=== PATIENT | male | born 1970 | race Caucasian/White ===

== ENCOUNTER 2021-04-28 10:23 | Emergency (ER) | payer SELFPAY ==
[2021-04-28] MEDS ORDERED: diphenhydrAMINE 50 MG/ML SDV IVPUSH ONE (11:01)
[2021-04-28] MEDS ORDERED: methylPREDNISolone Sod Succ 125 MG in Sodium Chloride 0.9% 250 ML IV ONE (11:01)
[2021-04-28] MEDS ORDERED: EPINEPHrine 1 MG/ML SDV IM ONE (11:03)
--- NOTE | 2021-04-28 11:19 | EDM.PDOC ---
ED [facility] GENERAL MEDICAL PROBLEM - General Chief Complaint: Allergic Reaction Stated Complaint: BEE STING/ALLERGIC REACTION Time Seen by Provider: 04/28/21 11:03 Source of Information: Reports: Patient History Limitations: Reports: No Limitations - History of Present Illness INITIAL COMMENTS - FREE TEXT/NARRATIVE: Patient is a 51-year-old male with no significant past medical history presenting with a chief complaint of allergy to bee sting. Patient states he was stung on his right palm less than 1 hour prior to arrival. No interventions performed prior to arrival. Patient reports itchiness to his hand, difficulty swallowing, tightness in his throat. Patient reports 1 prior severe reaction to bee sting. Patient concerned about anaphylaxis. Patient has no cardiac history or other concerns at this time. Right Hand Pain Score (Numeric/FACES): 3 - Related Data Allergies Allergy/AdvReac Type Severity Reaction Status Date / Time bee pollen Allergy Swollen Verified 04/28/21 10:57 Tongue Penicillins Allergy Hives Verified 04/28/21 10:57 Past Medical History HEENT History: Reports: Sinusitis Cardiovascular History: Reports: Other (See Below) Other Cardiovascular History: skipped beats at young age, subsided. Respiratory History: Reports: Pneumonia, Recurrent Gastrointestinal History: Reports: Cholelithiasis Musculoskeletal History: Reports: Fracture Neurological History: Reports: Concussion, Head Trauma, Other (See Below) Other Neuro History: skull fracture x2. - Infectious Disease History Infectious Disease History: Reports: Chicken Pox - Past Surgical History HEENT Surgical History: Reports: Other (See Below) Other HEENT Surgeries/Procedures: lip surgery for laceration, reconstruction surgery. Social & Family History - Tobacco Use Tobacco Use Status *Q: Current Some Day Tobacco User Years of Tobacco use: 20 Packs/Tins Daily: 0.1 - Caffeine Use Caffeine Use: Reports: Coffee, Soda - Recreational Drug Use Recreational Drug Use: Yes Recreational Drug Type: Reports: Marijuana/Hashish ED ROS ALLERGIC REACTION - Review of Systems Review Of Systems: See Below Free Text/Narrative/Comment: In addition to that documented in the HPI above, the additional ROS was obtained: Constitutional: Denies fevers or chills Eyes: Denies vision changes ENMT: Denies sore throat CV: Denies chest pain Resp: Mild SOB GI: Denies vomiting or diarrhea : Denies painful urination MSK: Denies recent trauma Skin: Denies new rashes Neuro: Denies new numbness or tingling or weakness Endocrine: Denies unexpected weight loss Heme: Denies bleeding disorders ED EXAM GENERAL NO PERIP PULSE - Physical Exam Exam: See Below Text/Narrative:: I have reviewed the triage vital signs Const: Well nourished, well developed, appears stated age Eyes: Pupils Equal and reactive to light bilaterally, no conjunctival injection HENT: Mild edema of the uvula. Voice is normal. No tongue swelling no lip swelling. No signs of trauma or swelling, Neck supple without meningismus CV: Regular Rate Rhythm, Warm, well-perfused extremities RESP: No wheezing noted. Unlabored respiratory effort GI: soft, non-tender, non-distended, no masses MSK: No gross deformities appreciated Skin: Warm, dry. No rashes Neuro: Alert, digital photo printer II-XII grossly intact. Sensation and motor function of extremities grossly intact. Psych: Appropriate mood and affect. Course - Vital Signs Last Recorded V/S: Last Vital Signs Temp 36.1 C 04/28/21 10:23 Pulse 96 04/28/21 10:23 Resp 24 H 04/28/21 10:23 BP 128/80 04/28/21 10:23 Pulse Ox 100 04/28/21 10:23 - Orders/Labs/Meds Meds: Medications Discontinued Medications Generic Name Dose Route Start Last Admin Trade Name Shawn PRFrancis Reason Stop Dose Admin Diphenhydramine HCl 25 mg 04/28/21 11:01 04/28/21 11:20 Diphenhydramine 50 Mg/Ml Sdv IVPUSH 04/28/21 11:02 25 mg ONETIME ONE Administration Epinephrine HCl 0.3 mg 04/28/21 11:03 04/28/21 11:19 Epinephrine 1 Mg/Ml Sdv IM 04/28/21 11:04 0.3 mg ONETIME ONE Administration Methylprednisolone Sodium 251 mls @ 251 mls/hr 04/28/21 11:01 04/28/21 11:25 Succinate 125 mg/ Sodium IV 04/28/21 11:02 Not Given Chloride ONETIME ONE Methylprednisolone Sodium Succinate 125 mg 04/28/21 11:22 04/28/21 11:23 Methylprednisolone Sodium Succinate 125 Mg/2 Ml Sdv IVPUSH 04/28/21 11:23 125 mg ONETIME ONE Administration Departure - Departure Time of Disposition: 12:46 Disposition: Home, Self-Care 01 Clinical Impression: Allergic reaction to bee sting - Discharge Information *PRESCRIPTION DRUG MONITORING PROGRAM REVIEWED*: Not Applicable *COPY OF PRESCRIPTION DRUG MONITORING REPORT IN PATIENT [place]: Not Applicable Instructions: Bee, Wasp, or Hornet Sting, Adult Referrals: PCP,None [Primary Care Provider] - Forms: ED Department Discharge Sepsis Event Note (ED) - Evaluation Sepsis Screening Result: No Definite Risk - Focused Exam Vital Signs: Vital Signs Temp Pulse Resp BP Pulse Ox 04/28/21 10:23 36.1 C 96 24 H 128/80 100 - Assessment/Plan Assessment:: Patient 51-year-old male presenting to emergency room with chief complaint of bee sting. Patient had unremarkable ER course. Clinical appearance was benign, patient did complain of some discomfort in the throat as well as rash on the hand concerning for possible anaphylaxis. Patient did receive Solu-Medrol, Benadryl, epinephrine in the emergency room. He felt complete resolution of symptoms. He was observed in the emergency room for several hours past medication administration. Patient be discharged at this time as he is demonstrating improvement in symptoms and no respiratory complaints at this denise e. Will be discharged with EpiPen all questions addressed and answered. Patient agrees with plan of care.
[2021-04-28] MEDS ORDERED: methylPREDNISolone Sodium Succinate 125 MG/2 ML SDV IVPUSH ONE (11:22)
== END 2021-04-28 13:03 | disposition home or self-care (01) ==
LOC: JD.ED 10:23
DX: T63.441A Toxic effect of venom of bees, accidental (unintentional), initial encounter (principal); Z72.0 Tobacco use; Z91.030 Bee allergy status; Z88.0 Allergy status to penicillin
CPT/HCPCS: 96372; 96374; 96375; 99282; J0171; J1200; J2930